=== PATIENT | male | born 1940 | race Caucasian/White ===

== ENCOUNTER 2016-10-18 09:48 | Day surgery (SDC) | payer MEDICARE, OTHER ==
[~2016-10-18] VITALS: Ht 172.7 cm; Wt 105.2 kg
[2016-10-18 13:03] VITALS: BP 130/80
--- NOTE | 2016-10-18 14:05 | Operative Note ---
Procedure/Operative Record Date of Procedure: 10/18/16 Pre-op diagnosis: LEFT carpal tunnel syndrome Post-op diagnosis: Same Procedure performed: LEFT carpal tunnel release Surgeon: Serafin Arango Anesthesia: Johnathon block anesthetic Indications: Long-standing LEFT carpal tunnel syndrome unresponsive to conservative therapy Description of procedure: The patient was taken to the operating room and the above anesthetic administered. The LEFT arm was prepped and draped in the usual sterile fashion. After exsanguination, the tourniquet was inflated to 250 torr and a Johnathon block anesthetic administered. Please see nurses record for total tourniquet time. Gilbert's landmarks were utilized and an incision made parallel to the thenar crease with a 15 blade. Blunt tissue dissection through the subcutaneous tissue down to the palmar fascia was performed. The palmar fascia was incised with a 69 [place] blade to reveal the transverse carpal ligament. Some fibers the palmaris brevis were swept aside to adequate expose the transverse carpal ligament and the transverse carpal ligament was then incised with a 69 [place] blade just enough to expose the median nerve. We then protected the median nerve with a Jordan elevator and extended the incision on the ulnar aspect of the nerve using the [place] blade. We then completed the incision proximally using a pair of tenotomy scissors ensuring that the transverse carpal ligament was NOT contiguous with the antebrachial fascia. A complete release proximally was documented by easily obtained side to side movement of the proximal carpal tunnel segments. Attention was then turned distally. Similarly, we incised the distal aspect of the transverse carpal ligament using the tenotomy scissors. Fat demarcating the end of the carpal tunnel was identified and we ensured that the motor branch was not endangered by any anatomic variation. We also then ensured that we had free side to side movement of the entire transverse carpal tunnel ligament segments. We then inspected the nerve. Slight hyperemic changes and slight indentation from pressure of the transverse carpal ligament was identified. There was duskiness involving an area of the nerve with associated hyperemia for several millimeters as well. There were no space-occupying lesions within the transverse carpal canal. We then irrigated the incision closed with interrupted 4-0 nylon sutures. Dressings were applied and the tourniquet deflated and then the patient was transported to the recovery room in satisfactory condition. EBL (ml): 1 Complications: None at 1400
== END 2016-10-18 12:40 | disposition home or self-care (01) ==
LOC: SDC 09:48
PROC: 01N50ZZ Release Median Nerve, Open Approach (ICD-10-PCS; principal; 2016-10-18)
DX: G56.02 Carpal tunnel syndrome, left upper limb (principal); E11.9 Type 2 diabetes mellitus without complications